=== PATIENT | female | born 1970 | race Caucasian/White ===

== ENCOUNTER → 2018-02-25 | Outpatient (CLI) | payer OTHER ==
[~2018-02-25] MED LIST: DEPO-PROVER150 MG/M1
== END ==
LOC: M.RAD 01-05 12:57 → M.ULTRA 01-25 10:40 → M.RAD 01-25 10:40
DX: N63.10 Unspecified lump in the right breast, unspecified quadrant (principal); R92.8 Other abnormal and inconclusive findings on diagnostic imaging of breast

== ENCOUNTER 2021-05-24 15:32 | Emergency (ER) | payer OTHER ==
[~2021-05-24] VITALS: Ht 157.5 cm; Wt 59.4 kg
[2021-05-24 16:27] VITALS: BP 144/90
== END 2021-05-24 16:27 | disposition home or self-care (01) ==
LOC: M.ERS 15:32
DX: J06.9 Acute upper respiratory infection, unspecified (principal); Z20.822 Contact with and (suspected) exposure to COVID-19

== ENCOUNTER → 2021-05-28 | Outpatient (CLI) | payer OTHER ==
--- NOTE | 2021-05-28 16:26 | 2DMMODE ---
[place] [address] 2 D/M-MODE ECHOCARDIOGRAM Name: GAYE RIVERA Room: [facility]#: [id number] Admission: 05/28/21 Attend Phys: Dalton Reyes, Discharge: Date of : 68 Date of Service: 05/28/21 1625 Report #: [id number] THIS REPORT FOR: cc: Maurizio Richard,Maurizio Smith,Efren Gil MD [facility] ~ APPROVED REPORT Study performed: 05/28/2021 11:07:15 EXAM: Comprehensive 2D, Doppler, and color-flow Echocardiogram Patient Location: Out-Patient BSA: 1.60 HR: 64 bpm BP: 116/64 mmHg Other Information Study Quality: Good Indications Murmur Irreg.heart beat 2D Dimensions IVSd: 9.00 (7-11mm) LVOT Diam: 18.28 (18-24mm) LVDd: 41.52 mm PWd: 8.26 (7-11mm) Ascending Ao: 22.95 (22-36mm) LVDs: 27.12 (25-40mm) Aortic Root: 25.02 mm Volumes Left Atrial Volume (Systole) LA ESV Index: 16.60 mL/m2 Aortic Valve AoV Peak Lele.: 1.49 m/s AO Peak Gr.: 8.89 mmHg LVOT Max P.01 mmHg AO Mean Gr.: 4.36 mmHg LVOT Mean P.08 mmHg LVOT Max V: 0.71 m/s AO V2 VTI: 32.33 cm LVOT Mean V: 0.49 m/s MITESH (VTI): 1.46 cm2 LVOT V1 VTI: 18.03 [place] [address] 2 D/M-MODE ECHOCARDIOGRAM Name: GAYE RIVERA [id number] Admission: 05/28/21 Attend Phys: Dalton Reyes, Discharge: Date of : 68 Date of Service: 05/28/21 1625 Report #: [id number] E/A Ratio: 1.10 MV Decel. Time: 207.19 ms MV E Max Lele.: 0.93 m/s MV PHT: 60.09 ms MVA (PHT): 3.66 cm2 TDI E/Lateral E': 9.30 E/Medial E': 7.15 Medial E' Lele.: 0.13 m/s Lateral E' Lele.: 0.10 m/s Pulmonary Valve PV Peak Lele.: 0.87 m/s PV Peak Gr.: 3.03 mmHg Tricuspid Valve RAP Estimate: 5.00 mmHg TR Peak Gr.: 16.27 mmHg RVSP: 21.27 mmHg PA Pressure: 21.27 mmHg Left Ventricle The left ventricle is normal size. There is normal LV segmental wall motion. There is normal left ventricular wall thickness. Left ventricular systolic function is normal. The left ventricular ejection fraction is within the normal range. LVEF is 55-60%. Right Ventricle The right ventricle is normal size. The right ventricular systolic function is normal. Atria The left atrium size is normal. The right atrium size is normal. Aortic Valve The aortic valve is normal in structure. No aortic regurgitation is present. There is no aortic valvular stenosis. Mitral Valve The mitral valve is normal in structure. Mild mitral regurgitation. No evidence of mitral valve stenosis. Tricuspid Valve The tricuspid valve is normal in structure. Trace tricuspid regurgitation[place] [address] 2 D/M-MODE ECHOCARDIOGRAM Name: GAYE RIVERA Room: [facility]#: [id number] Admission: 05/28/21 Attend Phys: Dalton Reyes, Discharge: Date of : 68 Date of Service: 05/28/21 1625 Report #: [id number] The pulmonary valve is normal in structure. There is no pulmonic valvular regurgitation. Great Vessels The aortic root is normal in size. IVC is normal in size and collapses >50% with inspiration. Pericardium There is no pericardial effusion. <Conclusion> The left ventricle is normal size. There is normal left ventricular wall thickness. Left ventricular systolic function is normal. The left ventricular ejection fraction is within the normal range. LVEF is 55-60%. The right ventricle is normal size. The left atrium size is normal. The aortic valve is normal in structure. The mitral valve is normal in structure. Mild mitral regurgitation. The tricuspid valve is normal in structure. IVC is normal in size and collapses >50% with inspiration. There is no pericardial effusion. There is normal LV segmental wall motion. <ELECTRONICALLY SIGNED> By: Efren Aranda MD, FACC 05/28/21 1625 1625 1625 Efren Aranda MD, FACC /INF
== END ==
LOC: M.CRD 09:00
PROVIDERS: ATTEND Internal Medicine Cardiovascular Disease
DX: I34.0 Nonrheumatic mitral (valve) insufficiency (principal); R01.1 Cardiac murmur, unspecified; I49.9 Cardiac arrhythmia, unspecified

== ENCOUNTER → 2021-06-17 | Outpatient (CLI) | payer OTHER | LOC: M.RAD 09:34 | PROVIDERS: ATTEND Family Medicine | DX: Z12.31 Encounter for screening mammogram for malignant neoplasm of breast (principal) ==

== ENCOUNTER → 2021-06-19 | Outpatient (CLI) | payer OTHER | LOC: M.RAD 13:47 | PROVIDERS: ATTEND Family Medicine | DX: R92.8 Other abnormal and inconclusive findings on diagnostic imaging of breast (principal) ==

== ENCOUNTER → 2021-06-25 | Outpatient (CLI) | payer OTHER | LOC: M.ULTRA 06-23 10:00 | PROVIDERS: ATTEND Otolaryngology | DX: E04.2 Nontoxic multinodular goiter (principal) ==

== ENCOUNTER → 2021-06-26 | Outpatient (CLI) | payer OTHER ==
--- NOTE | 2021-07-03 12:07 | PATH ---
[address] [address] PATHOLOGY RPT PROCEDURE Name: GAYE RIVERA Room: [facility]..#: [id number] Admission: 06/26/21 Date of : 68 Discharge: Report #: [id number] Path Case #: [id number] [facility] Accession Number: [id number] . 01 Material submitted: . breast - RIGHT BREAST CALCIFICATIONS. Modifiers: right . 01 Clinical history: . RIGHT BREAST STEREOTACTIC BIOPSY FOR CALCIFICATIONS . 02 Diagnosis: Right breast calcifications, stereotactic biopsy: - INFILTRATING LOBULAR CARCINOMA, LOW-GRADE, SPANNING AT LEAST 7 MM, IN ASSOCIATION WITH CALCIFICATIONS. SEE COMMENT. (ANABELL:kameron; 07/01/2021) . . CASE SUMMARY: Procedure ___ Other: Stereotactic biopsy . Specimen Laterality ___ Right . +Tumor Site ___ Not specified . Histologic Type ___ Invasive lobular carcinoma . Histologic Grade (Lisa Histologic Score) Glandular (Acinar) / Tubular Differentiation ___ Score 3 (less than 10% of tumor area forming glandular / tubular structures) . Nuclear Pleomorphism ___ Score 1 (Nuclei small with little increase in size in comparison with normal breast epithelial cells, regular outlines, uniform nuclear chromatin, little variation in size) . Mitotic Rate ___ Score 1 . Overall Grade ___ Grade 1 (scores of 3, 4 or 5) . +Tumor Size ___ Greatest dimension of largest invasive focus greater than 1 mm: At least 7 [place] [address] PATHOLOGY RPT PROCEDURE Name: GAYE RIVERA Room: [facility] Block#: [id number] Admission: 06/26/21 Date of : 68 Discharge: Report #: [id number] Path Case #: [id number] . Ductal Carcinoma In Situ (DCIS) ___ Not identified . +Lymphovascular Invasion ___ Not identified . +Microcalcifications ___ Present in invasive carcinoma ___ Present in non-neoplastic tissue . SPECIAL STUDIES +Breast Biomarker Studies: Pending MBR 07/01/2021 1103 Local . 02 Comment: Approximately 5% of all submitted tissues are involved by invasive neoplasm, noted to be present in A1, A2, A4 and A7. Focal lobular carcinoma in situ is also noted and is associated with calcification (A7). Properly controlled immunohistochemical studies performed on A2 characterized the malignant cells as follows supporting the diagnosis: . E-cadherin - negative. Keratin HILL - positive. . Breast tumor profile studies are pending on A1 and will be the subject of an addendum report. Reviewed with Dr. Michael Schwarz on 07/01/2021 who agrees with the diagnosis. Keri Alex ([facility] breast navigator) notified at approximately 1240 on 07/01/2021. . (ANABELL:kameron; 07/01/2021) . 02 Addendum: . Special studies report received from [facility], [address] [place] [address], [address], [place], [address], on case [id number], labeled with their number [id number], dated 07/02/2021. . Breast Predictive/Prognostic Marker Analysis . . Specimen Site: Rt Breast Calcifications, Cylindrical Tissues, Not Provided Specimen ID #: [id number] . ER (Estrogen Receptor) Positive Percent: 95.00% Analysis: Manual Staining Intensity: [place] [address] PATHOLOGY RPT PROCEDURE Name: GAYE RIVERA [facility] [id number] Admission: 06/26/21 Date of : 68 Discharge: Report #: [id number] Path Case #: [id number] Internal Control: Present and Positive . DE (Progesterone Receptor) Positive Percent: 95.00% Analysis: Manual Staining Intensity: Moderate to Strong Internal Control: Present and Positive . Negative Score: 1+ Analysis: Manual . Ki-67 High Proliferation Percent: 30.00% Analysis: Manual . Time to Fixation (Cold Ischemic Time): 7 minutes Duration of Fixation: Not Provided Type of Fixative: 10% Neutral Buffered Formalin . at [employer]. Ricardo Campuzano MD Pathologist . . Methodology: The HER2 Receptor protein expression is analyzed using the [place] HER2 rabbit monoclonal antibody (clone [id number]). This assay is used for diagnostic determination of the HER2 protein over-expression in paraffin embedded, formalin fixed breast cancer tissue on the [place] Benchmark. The specimen is processed using a secondary antibody-HRP conjugate detection system. The membrane staining of the tumor is determined either by manual score or image analysis. This antibody is intended for in vitro diagnostic use. The score is reported as 0, 1+, 2+, or 3+. This test is used for clinical purposes. . A rabbit monoclonal antibody (clone SP1) that recognized the Estrogen Receptor is used to perform immunohistochemistry on routinely fixed (formalin) paraffin embedded tissue on the [employer] Benchmark. The specimen is processed using a secondary antibody-HRP conjugate detection system. The percentage of stained tumor nuclei is determined either manually or by image analysis. This test is intended for in vitro diagnostic use. This test is used for clinical purposes. . A rabbit monoclonal antibody (clone 1E2) that recognized the Progesterone Receptor is used to perform [place] [address] PATHOLOGY RPT PROCEDURE Name: GAYE RIVERA Room: [facility] Block#: [id number] Admission: 06/26/21 Date of : 68 Discharge: Report #: [id number] Path Case #: [id number] (formalin) paraffin embedded tissue on the [place] Benchmark. The specimen is processed using a secondary antibody-HRP conjugate detection system. The percentage of stained tumor nuclei is determined either manually or by image analysis. This test is intended for in vitro diagnostic use. This test is used for clinical purposes. . A rabbit monoclonal antibody (clone 30-9) that recognized Ki67 is used to perform immunohistochemistry on routinely fixed (formalin) paraffin embedded tissue on the [place] Benchmark. The specimen is processed using a secondary antibody-HRP conjugate detection system. The percentage of stained tumor nuclei is determined either manually or by image analysis. This test is intended for in vitro diagnostic use. This test is used for clinical purposes. . Intended Use: This antibody is intended for in vitro diagnostic (IVD) use. HER2 (4B5) is a rabbit monoclonal antibody intended for the semi-quantitative detection of HER2 antigen in sections of formalin-fixed, paraffin embedded neoplastic tissue. . This antibody is intended for in vitro diagnostic (IVD) use. Estrogen Receptor (ER) (SP1) is a rabbit monoclonal antibody (IgG) that is intended for the qualitative detection of estrogen receptor (ER) antigen in sections of formalin-fixed, paraffin-embedded tissue. ER is a rabbit monoclonal antibody that recognizes human estrogen receptor alpha. . This antibody is intended for in vitro diagnostic (IVD) use. Progesterone Receptor (DE) (1E2) is a rabbit monoclonal antibody (IgG) that is intended for the qualitative detection of progesterone receptor (DE) antigen in sections of formalin fixed, paraffin embedded tissue. DE is a rabbit monoclonal antibody that recognizes the A and B forms of the human progesterone receptor. . This antibody is intended for in vitro diagnostic (IVD) use. Ki-67 (30-9) is a rabbit monoclonal antibody (IgG) directed against C-terminal portion of Ki-67 antigen. Staining for Ki-67 can be used to aid in assessing the proliferative activity of normal and neoplastic tissue. Ki-67 is a nuclear protein expressed in proliferating cells. During the cell cycle, the Ki-67 antigen is present in the G1, S, G2 and M phase but is absent in the G0 (quiescent phase). . Disclaimer:2 This Test was performed by [employer]. at [address] [place] [address], [address]. . [facility] is a business unit of [employer]. a wholly-owned subsidiary of [place] [address] PATHOLOGY RPT PROCEDURE Name: GAYE RIVERA Room: [facility].#: [id number] Admission: 06/26/21 Date of : 68 Discharge: Report #: [id number] Path Case #: [id number] This assay has not been validated on decalcified tissues. Results should be interpreted with caution if this specimen was decalcified given the likelihood of false negativity on decalcified specimens. . Any image(s) that accompany this report is/are a business banking representative image(s) only and should not be used to render a diagnosis. . This interpretation is contingent on the specimen and the clinical information received. . For any special tests/stains performed, known positive cells or tissues are tested with each marker and examined to ensure positivity. Positive and negative internal controls, if present, react appropriately. . This analysis is an adjunct to the evaluation of the referring physician and does not represent a final diagnosis. . The immunohistochemistry tests performed at [employer]. were validated on tissue fixed in 10% neutral buffered formalin. The performance characteristics of the tests performed on tissue processed in other fixatives is not known. . HER2 testing at [employer] is performed in compliance with the 2018 updated ASCO/CAP Clinical Practice Guideline Focused Update. If the result is EQUIVOCAL (2+), it must be confirmed by an alternative assay such as FISH. . REFERENCE: Dom RODRIGUEZ, Jose Eduardo MARTEL, Princess KH, et al: Human epidermal growth factor receptor 2 testing in breast cancer: ASCO/CAP clinical practice guideline focused update. Arch Pathol Lab Med. 2018;142:0673-1219. . HER2 and ER/DE ASCO/CAP guidelines require fixation in neutral buffered formalin for a minimum of 6 and a maximum of 72 hours. Fixation times less than 6 hours may not adequately preserve cell proteins. Fixation times longer than 72 hours may cause excess cross-linking of proteins reducing the antigen available for staining. Either scenario can cause reduced staining; hence false negative results are possible and should be considered for these situations if the HER2 IHC score is less than 3+ or ER or DE is negative (no staining or <1% positive). It is recommended that specimens fixed longer than 72 hours with HER2 IHC scores less than 3+ be confirmed by HER2 FISH. The time from biopsy/excision to fixation in formalin (cold ischemic time) must be less than 1 hour. Time to fixation (cold ischemic time) greater than 1 hour should be interpreted with caution. HER2 testing, mainly HER2 by FISH, is particularly vulnerable since excessive cold ischemic time results in preferential loss of HER2 probe signals that may lead to false negative results. Use of unstained slides cut more than 6 weeks before analysis is [place] [address] PATHOLOGY RPT PROCEDURE Name: GAYE RIVERA [facility] [id number] Admission: 06/26/21 Date of : 68 Discharge: Report #: [id number] Path Case #: [id number] ER/PgR testing at [employer]. is performed in compliance with the ASCO/CAP Clinical Practice Guidelines. If the result for ER is less than 1% it is reported as Negative; if the ER result is 1-10% it is reported as Low Positive; if the ER result is greater than 10% it is reported as Positive. If the result for PgR is less than 1% it is reported as Negative; if the PgR result is equal to or greater than 1%, it is reported as Positive. . REFERENCE: Princess GUPTA, Jose Eduardo MARTEL, Orlando M,et al. Estrogen and progesterone receptor testing in breast cancer. ASCO/CAP guideline update. Arch Pathol Lab Med. 2020;144:545-563. . . SCORE STAINING PATTERN IN TUMOR CELLS INTERPRETATION RESULTS 0 No staining observed or incomplete, faint membrane staining in less than or equal to 10% of tumor cells. Negative 1+ Incomplete, faint membrane staining in greater than 10% of tumor cells. Negative 2+ Weak to moderate complete membrane staining observed in greater than 10% of tumor cells. Equivocal* *Must be confirmed by alternative assay (IHC/FISH/Dual ROZ) 3+ Intense, complete membrane staining in greater than 10% of tumor cells. Positive . A complete copy of the report is on file. . Professional and Technical services performed by [employer] at [address] [facility] [address], [place] [address]. . (MLK:amstefan 07/03/2021) . AZJ/07/03/2021 Addendum Electronically Signed by Colleen Beltran MD, Pathologist . 02 Electronically signed: . Obed Finney MD, Pathologist NPI- [id number] . 01 Gross description: . The specimen is received in formalin, labeled "Mela, Gaye, right breast calcification" and consists of at least 16 fatty fibrotic cylindrical tissues (ranging in length from 1.1 cm to 1.9 cm and ranging [facility] [address] [place] [address] PATHOLOGY RPT PROCEDURE Name: GAYE RIVERA Room: [facility]..#: [id number] Admission: 06/26/21 Date of : 68 Discharge: Report #: [id number] Path Case #: [id number] in diameter from 0.3 cm to 0.7 cm). The specimen is submitted entirely in A1-A9.([place] [employer] [employer]; 06/27/2021) DKA/DKA 06/27/2021 1149 Local . 02 Pathologist provided ICD-10: C50.911 . 02 CPT . 614492, R87182, S75008 Specimen Comment: A courtesy copy of this report has been sent to [phone] Specimen Comment: Report sent to Performed at: 01 [facility] [address] [place] [address] [address], [place], [place] [id number] MD Michael Schwarz MD Phone: [phone] Performed at: 02 [facility] [place] [address], [place], [place] [id number] MD Obed Finney MD Phone: [phone]
== END | disposition home or self-care (01) ==
LOC: M.RAD 10:40
PROVIDERS: ATTEND Family Medicine
DX: R92.1 Mammographic calcification found on diagnostic imaging of breast (principal); C50.911 Malignant neoplasm of unspecified site of right female breast

== ENCOUNTER → 2021-07-15 | Outpatient (CLI) | payer OTHER ==
[~2021-07-15] MED LIST changes: +ADDERALL 20 MG20 MG PO; +ADVIL200 M3 PO; +ROXICODONE5 MG PO
== END ==
LOC: M.MRI 11:24
PROVIDERS: ATTEND Surgery
DX: C50.919 Malignant neoplasm of unspecified site of unspecified female breast (principal)

== ENCOUNTER → 2021-07-29 | Outpatient (CLI) | payer OTHER ==
--- NOTE | 2021-07-31 13:08 | PATH ---
[address] [address] PATHOLOGY RPT PROCEDURE Name: GAYE RIVERA Room: [facility].#: [id number] Admission: 07/29/21 Date of : 68 Discharge: Report #: [id number] Path Case #: [id number] Note [facility] Accession Number: [id number] TESTS RESULT FLAG UNITS REF RANGE LAB Clinician Provided Cytology Information No. of containers..01 Other (Miscellaneous) Source: LEFT THRYOID NODULE DIAGNOSIS: 02 LEFT THRYOID NODULE (1.3 x 1.4 x 1.9 cm), IMAGE-GUIDED FNA: NEGATIVE FOR MALIGNANT CELLS. BETHESDA CATEGORY II. SPECIMEN CONSISTS OF BENIGN FOLLICULAR CELLS, HEMOSIDERIN-LADEN MACROPHAGES, COLLOID, AND BLOOD. THIS PATTERN IS CONSISTENT WITH A COLLOID NODULE. THIS INTERPRETATION INCLUDES EVALUATION OF A CELL BLOCK. Pathologist ICD10: 02 E04.1 Signed out by: 02 Obed Finney MD, Pathologist NPI- [id number] Performed by: 01 Lily Stahl, [employer] ([facility]) Gross description: 01 30ML, CLOUDY, RED /LCS 07/30/[address] [place] [address] FLAG LEGEND: L-Low Normal,H-High Normal,LL-Alert Low,HH-Alert High <-Panic Low,>-Panic High,A-Abnormal,AA-Critical Abnormal Performed at: 01 [facility] [address] [place] [address] Michael Schwarz MD, [address] [address] Obed Finney MD, Specimen Comment: A courtesy copy of this report has been sent to [phone] Specimen Comment: Report sent to Performed at: 01 [facility] [address], [place], [place] [id number] MD Michael Schwarz MD Phone: [phone]
== END | disposition home or self-care (01) ==
LOC: M.ULTRA 12:41
PROVIDERS: ATTEND Otolaryngology
DX: E04.1 Nontoxic single thyroid nodule (principal); Z88.8 Allergy status to other drugs, medicaments and biological substances

== ENCOUNTER → 2021-07-31 | Outpatient (CLI) | payer OTHER | END | disposition home or self-care (01) | LOC: M.ULTRA 09:25 | PROVIDERS: ATTEND Surgery | DX: N63.10 Unspecified lump in the right breast, unspecified quadrant (principal); R92.1 Mammographic calcification found on diagnostic imaging of breast; Z98.890 Other specified postprocedural states; Z79.899 Other long term (current) drug therapy ==

== ENCOUNTER → 2021-08-07 | Day surgery (SDC) | payer OTHER ==
--- NOTE | 2021-08-08 15:14 | OP ---
[address] [address] OPERATIVE REPORT Name: GAYE RIVERA Room: [facility] M.R.#: [id number] Admission: 08/07/21 Attend Phys: Stella Galindo DO Discharge: Date of : 68 Report #: [id number] THIS REPORT FOR: cc: Maurizio Richard Vincent R. DO Brock, Christie M. DO ~ DATE OF SURGERY: 08/07/2021 PREPROCEDURE DIAGNOSIS: Right breast cancer. POSTPROCEDURE DIAGNOSIS: Right breast cancer. FINDINGS: Right breast RFID tag. Nuclear medicine uptake at the nipple was 8045. Right superficial sentinel lymph node uptake was 240. SURGEON: Stella Galidno DO PUBLIC RELATIONS ACCOUNT SUPERVISOR: MS Isabella-3. PROCEDURE PERFORMED: Right breast tag-guided lumpectomy and right superficial sentinel lymph node dissection. ANESTHESIA: LMA and local. ESTIMATED BLOOD LOSS: 10 mL. DRAINS: None. SPECIMENS: Right lumpectomy and right superficial sentinel lymph node. COMPLICATIONS: None. CONDITION: Stable. DISPOSITION: PACU to home. HISTORY OF PRESENT ILLNESS: The patient is a pleasant 50-year-old female who presented to my office with a change in her mammogram. She underwent an ultrasound-guided biopsy of the right breast with findings of right lobular carcinoma. She was seen by Oncology and Radiation Oncology and underwent an MRI. After completion of consultation, she decided to move forward with a lumpectomy and a sentinel lymph node dissection. Risks and benefits were discussed in detail. The patient agreed to proceed. In preop period, the patient returned to Radiology and underwent placement of an RFID tag next to the previously deployed clip and also underwent nuclear medicine [place] [address] OPERATIVE REPORT Name: NICOLEGAYE ANNABELLA Room: [facility] Umair#: [id number] Admission: 08/07/21 Attend Phys: Stella Galindo DO Discharge: Date of : 68 Report #: [id number] DESCRIPTION OF PROCEDURE: The patient was brought to the operating room. She was laid supine on the operating room table. SCDs were placed on bilateral lower extremities. Ancef was given in the perioperative period. General LMA anesthesia was induced by Anesthesia without any difficulty. A 5 mL of isosulfan blue dye were injected in the right periareolar area. Right breast was prepped and draped in standard sterile fashion. Time-out was performed to verify patient and procedure. Hologic probe was brought onto the field and the area of the RFID tag was identified and marked. A curvilinear right upper quadrant incision was marked out. A 10 mL of 0.5% Marcaine were injected in the area of the planned incision. Incision was made with a 15 blade. Cautery was used for hemostasis. Then, using the hologic probe for guidance, a lumpectomy specimen was formed. It was marked in the superior and lateral direction and was sent to Radiology for mammography. Mammography indicated that we had both the clip and the tag with a good-appearing specimen. Neoprobe was then brought onto the field and the area of the nipple was interrogated. Highest uptake was approximately 8045. Right axilla was then also interrogated and the area of the highest uptake was noted. It did appear that the area of uptake was fairly close to our previously made lumpectomy, so the Neoprobe was introduced into our lumpectomy cavity and an area of high uptake was identified. Weitlaner retractor was placed within our incision. Fany clamp was used to dissect closer to the axillary tissue. Clavipectoral fascia was incised using cautery. We had high uptake very superficial in the axillary fat pad and an area of clear blue dye could be seen streaking through the lymphatic duct. This area was gently elevated using an Allis clamp and a visible lymph node was dissected free using a combination of blunt and cautery dissection. The uptake on this lymph node was 240. Neoprobe was returned into the axilla and there was no further uptake noted. This was handed off as our right superficial sentinel lymph node. Hemostasis was assured in both cavities. Wounds were both copiously irrigated until clear. FloSeal was introduced into the cavity. Wound was then closed in a layered fashion using deep and superficial stitches of 3-0 Vicryl in an inverted interrupted fashion. Skin wound was closed with a running 4-0 Monocryl. A total of 30 mL of 0.5% Marcaine were used to anesthetize the wound. Wound was then cleansed and covered with Dermabond. The patient was then allowed to awaken from anesthesia, was extubated and transported to the recovery room with no further difficulties. Counts were correct at the conclusion of the case. <ELECTRONICALLY SIGNED> By: Stella Galindo DO 08/08/21 1514 1503 1557Chnegro Galindo DO /nt
--- NOTE | 2021-08-12 17:06 | PATH ---
[address] [address] PATHOLOGY RPT PROCEDURE Name: GAYE RIVERA Room: [facility]..#: [id number] Admission: 08/07/21 Date of : 68 Discharge: Report #: [id number] Path Case #: [id number] [facility] Accession Number: [id number] . 01 Material submitted: . PART A: breast - RIGHT BREAST LUMPECTOMY OUT AT 1523. Modifiers: right PART B: lymph node - RIGHT SENTINEL NODE OUT 1534 IN FORMALIN AT 1541. Modifiers: right, SENTINEL . 01 Clinical history: . LUMPECTOMY LOBULAR CARCINOMA RIGHT BREAST A: LONG STITCH=LATERAL SHORT STITCH= SUPERIOR . 02 Diagnosis: A. Right breast lumpectomy: - INFILTRATING LOBULAR CARCINOMA, INTERMEDIATE GRADE, SPANNING AT LEAST 7 MM NEAR PRIOR BIOPSY SITE (INCLUDING BIOPSY CLIP AND LOCALIZATION SEED), WITH INVOLVEMENT OF INFERIOR MARGIN FOR SPAN OF 4 MM. SEE COMMENT. . B. Right sentinel node: - One benign lymph node and benign breast tissue with fat necrosis, negative for atypia (0/1). See comment. . CANCER CASE SUMMARY Protocol Posting Date: February 2021 CASE SUMMARY: (INVASIVE CARCINOMA OF THE BREAST: Resection) Standard(s): AJCC-UICC 8 SPECIMEN Procedure ___ Other: Lumpectomy Specimen Laterality ___ Right TUMOR +Tumor Site ___ Not specified Histologic Type ___ Invasive lobular carcinoma Histologic Grade (Lisa Histologic Score) Glandular (Acinar) / Tubular Differentiation ___ Score 3 (less than 10% of tumor area forming glandular / tubular structures) Nuclear Pleomorphism ___ Score 1 (Nuclei small with little increase in size in comparison with normal breast epithelial cells, regular outlines, uniform nuclear chromatin, little variation in size) Mitotic Rate ___ Score 2 [place] [address] PATHOLOGY RPT PROCEDURE Name: GAYE RIVERA Room: [facility].#: [id number] Admission: 08/07/21 Date of : 68 Discharge: Report #: [id number] Path Case #: [id number] Overall Grade ___ Grade 2 (scores of 6 or 7) Tumor Size ___ Greatest dimension of largest invasive focus greater than 1 mm: At least 7 mm. +Tumor Focality ___ Single focus of invasive carcinoma Ductal Carcinoma In Situ (DCIS) ___ Not identified Lobular Carcinoma In Situ (LCIS) ___ Present, with necrosis Lymphovascular Invasion ___ Not identified Dermal Lymphovascular Invasion ___ No skin present +Microcalcifications ___ Present in non-neoplastic tissue Treatment Effect in the Breast ___ No known presurgical therapy MARGINS Margin Status for Invasive Carcinoma Margin Involved by Invasive Carcinoma ___ Inferior: 4 mm span REGIONAL LYMPH NODES Regional Lymph Node Status ___ Regional lymph nodes present ___ All regional lymph nodes negative for tumor Total Number of Lymph Nodes Examined (sentinel and non-sentinel) ___ Exact number: 1 Number of Wallace Nodes Examined ___ Exact number: 1 . PATHOLOGIC STAGE CLASSIFICATION (pTNM, AJCC 8th EDITION) pT Category ___ pT1b: Tumor greater than 5 mm but less than or equal to 10 mm in greatest dimension. See comment Regional Lymph Nodes Modifier ___ (sn): Wallace node evaluated. pN Category ___ pN0: No regional lymph node metastasis identified or ITCs only SPECIAL STUDIES +Breast Biomarker Testing Performed on Previous Biopsy Estrogen Receptor (ER) Status ___ Positive (greater than 10% of cells demonstrate nuclear positivity) +Percentage of Cells with Nuclear Positivity: 95% Progesterone Receptor (PgR) Status ___ Positive +Percentage of Cells with Nuclear Positivity 91-100% HER2 (by immunohistochemistry) [place] [address] PATHOLOGY RPT PROCEDURE Name: GAYE RIVERA Room: [facility]#: [id number] Admission: 08/07/21 Date of : 68 Discharge: Report #: [id number] Path Case #: [id number] ___ Negative (Score 1+) Ki-67 Percentage of Positive Nuclei: 30% +Testing Performed on A1 (ANABELL:[facility]; 08/12/2021) P 08/12/2021 1644 Local . 02 Comment: The tumor size for staging is based on the longest span seen in tissues, however, because there is prominent marginal involvement in the lumpectomy, it is likely greater than 7 mm in span. Properly controlled immunohistochemical studies are performed on multiple blocks with results as follows, supporting the diagnosis: A3 Keratin AE1/AE3: Negative Desmin: Positive/highlights muscle wall of small blood vessel A13 Keratin HILL: Positive/highlights invasive tumor A15 CK7: Positive, highlights invasive tumor B1 Keratin AE1/AE3: Lymph node and breast tissue negative for metastatic tumor. (ANABELL:[facility]; 08/12/2021) . 02 Electronically signed: . Obed Finney MD, Pathologist NPI- [id number] . 01 Gross description: . A. Fixative: The specimen is received fresh. Labeled: Right breast lumpectomy long stitch = lateral short stitch = superior Specimen received: Oriented lumpectomy Oriented: A short suture is present at superior and a long suture is present at lateral. Dimensions: 5.7 cm from medial to lateral, 4.7 cm from superior to inferior, 1.6 cm from anterior to posterior Weight: 21 g The specimen is inked as follows: superior-red inferior-blue anterior-green posterior-black lateral-orange medial-yellow Sectioned from: Medial to lateral Number of slices: 14 Lesion: A lesion is not definitively identified[place] [address] PATHOLOGY RPT PROCEDURE Name: GAYE RIVERA Room: [facility]#: [id number] Admission: 08/07/21 Date of : 68 Discharge: Report #: [id number] Path Case #: [id number] present, measuring 1.5 x 0.8 x 0.8 cm Biopsy site location: Slices 7-8 Biopsy site to margins: 2.7 cm to superior 0.6 cm to inferior 0.5 cm to anterior 0.5 cm to posterior 3.1 cm to lateral 2.5 cm to medial Biopsy clip: Yes, a U-shaped biopsy clip and a magnetic localization seed are located in slice 7. Uninvolved breast parenchyma: Yellow-roldan and lobulated with fibrous tissue adjacent to the inferior margin . The specimen is submitted as follows: A1 slice 1, medial margin, perpendicular section A2-A5 slices 2-5 A6-A7 slice 6 A8-A9 slice 7 A10-A11 slice 8 A12-A13 slice 9 A14-A15 slice 10 A16-A17 slice 11 A18 slice 12 A19 slice 13 A20 slice 14, lateral margin, perpendicular sections . . The specimen is removed from the patient at 1523 on 08/07/21 and received in the laboratory fresh. The specimen is placed in formalin at 1013 on 08/08/2021. The specimen is removed from formalin at 2140 on 08/08/2021. The cold ischemic time exceeds 1 hour. The specimen is in formalin for greater than 6 hours and less than 72 hours. . B. Received in formalin labeled "Gaye Rivera, right sentinel node" is a partially incised roldan-brown lymph node with attached fibroadipose tissue measuring 4.6 x 2.6 x 0.5 cm. The lymph node measures 1.3 x 0.8 x 0.5 cm. The lymph node is serially sectioned and the specimen is entirely submitted in cassette B1. ([facility]; 08/08/2021) [facility] 08/12/2021 1417 Local . 02 Pathologist provided ICD-10: C50.911 . 02 CPT . 230318, 895426, U92019, X63416 Specimen Comment: A courtesy copy of this report has been sent to [phone] Specimen Comment: [phone] [place] [address] PATHOLOGY RPT PROCEDURE Name: GAYE RIVERA ANNABELLA Room: [facility].#: [id number] Admission: 08/07/21 Date of : 68 Discharge: Report #: [id number] Path Case #: [id number] Specimen Comment: Report sent to / DR DONOVAN Performed at: [address] [facility] [address], [place], [place] [id number] MD Michael Schwarz MD Phone: [phone] Performed at: 02 [facility] [address] [place], [place] [id number] MD Obed Finney MD Phone: [phone]
== END | disposition home or self-care (01) ==
LOC: M.SUR 06:42
PROVIDERS: ATTEND Surgery
DX: C50.911 Malignant neoplasm of unspecified site of right female breast (principal); R59.0 Localized enlarged lymph nodes; Z98.890 Other specified postprocedural states; Z88.8 Allergy status to other drugs, medicaments and biological substances

== ENCOUNTER → 2021-09-01 | Day surgery (SDC) | payer OTHER ==
--- NOTE | 2021-09-01 10:44 | OP ---
[address] [address] OPERATIVE REPORT Name: GAYE RIVERA Room: [facility] M.R.#: [id number] Admission: 09/01/21 Attend Phys: Stella Galindo DO Discharge: Date of : 68 Report #: [id number] THIS REPORT FOR: cc: Maurizio Richard Vincent R. DO Brock,Stella Gil DO ~ DATE OF SURGERY: 09/01/2021 PREPROCEDURE DIAGNOSES: Right breast cancer, status post lumpectomy with positive inferior margin. POSTOPERATIVE DIAGNOSES: Right breast cancer, status post lumpectomy with positive inferior margin. FINDINGS: Right upper outer quadrant breast cavity from previous lumpectomy. SURGEON: Stella Galindo DO. CO-SURGEON: Ruy Jean-Baptiste, PGY-1. PROCEDURE PERFORMED: Right breast reexcision for inferior margin. ANESTHESIA: LMA and local. ESTIMATED BLOOD LOSS: 10 mL. DRAINS: None. SPECIMENS: Right breast inferior margin. COMPLICATIONS: None. CONDITION: Stable. DISPOSITION: PACU to home. HISTORY OF PRESENT ILLNESS: The patient is a very nahun 51-year-old female who is known to me from a recent right breast lumpectomy for lobular carcinoma. Unfortunately, we had a positive margin at that surgery. We are now returning for reexcision for inferior margin. Risks and benefits were discussed in detail. The patient agrees to proceed. DESCRIPTION OF PROCEDURE: The patient was brought to the operating room. She was laid supine on the operating room table. SCDs were placed on bilateral lower extremities. Ancef was given in the perioperative period. General LMA anesthesia was induced by anesthesia without difficulty. [place] [address] OPERATIVE REPORT Name: NICOLEGAYE WINCHESTER Room: [facility]..#: [id number] Admission: 09/01/21 Attend Phys: Stella Galindo DO Discharge: Date of : 68 Report #: [id number] prepped and draped in the standard sterile fashion. Timeout was performed to verify the patient and procedure. A 10 mL of 0.25% Marcaine were injected at the previous incision site. Incision was reopened using a 15 blade. Cautery was used for hemostasis. The cavity was gently entered using blunt dissection, a small seroma was suctioned away. The cavity was clearly visible. Inferior margin was gently elevated using an Allis clamp. Specimen was created utilizing cautery. Inferior margin was marked in the superior and lateral direction, was handed off for permanent pathology. Wound was copiously irrigated. Hemostasis was assured. Wound was closed in a layered fashion using deep and superficial stitches of 3-0 Vicryl in inverted interrupted fashion. Skin wound was closed with a running 4-0 Monocryl. A total of 30 mL of 0.25% Marcaine were used to anesthetize the wound. Wound was then cleansed and covered with Dermabond. The patient was then allowed to awaken from anesthesia, was extubated and transported to the recovery room with no further difficulties. Counts were correct at the conclusion of the case. <ELECTRONICALLY SIGNED> By: Stella Galindo DO 09/01/21 1044 [id number] Galindo DO /nt
--- NOTE | 2021-09-03 13:08 | PATH ---
[address] [address] PATHOLOGY RPT PROCEDURE Name: GAYE RIVERA Room: [facility].R.#: [id number] Admission: 09/01/21 Date of : 68 Discharge: Report #: [id number] Path Case #: [id number] [facility] Accession Number: [id number] . 01 Material submitted: . breast - RIGHT BREAST INFERIOR MARGIN. Modifiers: right, inferior . 01 Clinical history: . RIGHT BREAST INFILTRATING LOBULAR CARCINOMA SHORT STITCH - SUPERIOR, LONG STITCH - LATERAL . 02 Diagnosis: RIGHT BREAST INFERIOR MARGIN: - RESIDUAL INFILTRATING LOBULAR CARCINOMA, INTERMEDIATE GRADE, SPANNING 6 MM ADJACENT TO CHANGES OF PRIOR INSTRUMENTATION, WITH ALL SURGICAL MARGINS FREE OF INVOLVEMENT AND CLOSEST (SUPERIOR) LOCATED 1.6 MM AWAY AND NEXT CLOSEST (LATERAL) LOCATED 2 MM AWAY. - Incidental 3 mm fibroadenoma, apocrine changes and luminal calcifications. See comment. LBQ 09/03/2021 1139 Local . 02 Comment: Residual lobular carcinoma is identified in A1 and A2 taken from the lateral aspect of the specimen. Recent prior right breast lumpectomy showed infiltrating lobular carcinoma, intermediate grade, spanning at least 7 mm with involvement of the inferior margin for a span of 4 mm ([id number] A). Discussed with Dr. Galindo on a.m. of 09/03/2021. (ANABELL/db; 09/03/2021) . 02 Electronically signed: . Obed Finney MD, Pathologist NPI- [id number] . 01 Gross description: . Fixative: Formalin Labeled: Right breast inferior margin Specimen received: Oriented lumpectomy Oriented: Short superior, long lateral Weight: 23 g Dimensions: 6.3 cm medial to lateral, 3.4 cm anterior to posterior, and 2.8 cm superior to inferior . The specimen is inked as follows: superior-red inferior-blue anterior-green posterior-[place] [address] PATHOLOGY RPT PROCEDURE Name: GAYE RIVERA Room: [facility]#: [id number] Admission: 09/01/21 Date of : 68 Discharge: Report #: [id number] Path Case #: [id number] lateral-orange medial-yellow . Sectioned from: Lateral to medial Number of slices: 16 Cut surfaces: Predominantly white, fibrous with a slight amount of bright yellow, lobulated tissue identified Biopsy clip: Not identified . The specimen is submitted entirely from lateral to medial aspects in cassettes A1 through A16, with the lateral (slice 1), and medial (slice 16) aspects serially sectioned. . The time of collection is not provided. The time in formalin is 0931 on 09/01/2021. The specimen is removed from formalin at 1650 on 09/02/2021. The specimen is in formalin for greater than 6 hours and less than 72 hours. ([facility]; 09/02/2021) QAC/QAC 09/02/2021 0945 Local . 02 Pathologist provided ICD-10: C50.911, D24.1 . 02 CPT . 627017 Specimen Comment: A courtesy copy of this report has been sent to [phone] Specimen Comment: [phone] Specimen Comment: Report sent to / DR DONOVAN Performed at: 01 [facility] [address], [place], [place] [id number] MD Michael Schwarz MD Phone: [phone] Performed at: 02 [facility] [address], [place], [place] [id number] MD Obed Finney MD Phone: [phone]
== END | disposition home or self-care (01) ==
LOC: M.SUR 06:49
PROVIDERS: ATTEND Surgery
DX: C50.911 Malignant neoplasm of unspecified site of right female breast (principal); D24.1 Benign neoplasm of right breast; R92.1 Mammographic calcification found on diagnostic imaging of breast; Z98.890 Other specified postprocedural states; Z79.899 Other long term (current) drug therapy; Z20.822 Contact with and (suspected) exposure to COVID-19; Z88.8 Allergy status to other drugs, medicaments and biological substances

== ENCOUNTER 2021-09-05 23:08 | Emergency (ER) | payer OTHER ==
[~2021-09-05] VITALS: Ht 154.9 cm; Wt 59.9 kg
[2021-09-06 00:30] VITALS: BP 143/92
== END 2021-09-06 00:31 | disposition home or self-care (01) ==
LOC: M.ERS 23:08
DX: T81.30XA Disruption of wound, unspecified, initial encounter (principal); Z85.3 Personal history of malignant neoplasm of breast; Z90.89 Acquired absence of other organs; Z79.899 Other long term (current) drug therapy; Z88.5 Allergy status to narcotic agent; Y83.8 Other surgical procedures as the cause of abnormal reaction of the patient, or of later complication, without mention of misadventure at the time of the procedure; Y92.89 Other specified places as the place of occurrence of the external cause

== ENCOUNTER → 2021-09-17 | Outpatient (CLI) | payer OTHER | LOC: M.LAB 12:19 | PROVIDERS: ATTEND Internal Medicine | DX: C50.411 Malignant neoplasm of upper-outer quadrant of right female breast (principal) ==

== ENCOUNTER → 2021-10-16 | Outpatient (CLI) | payer OTHER | LOC: M.RAD 11:00 | PROVIDERS: ATTEND Internal Medicine | DX: C50.411 Malignant neoplasm of upper-outer quadrant of right female breast (principal); Z78.0 Asymptomatic menopausal state ==